=== PATIENT | female | born 1960 | race Caucasian/White ===

== ENCOUNTER 2017-09-05 06:38 | Inpatient (IN) | payer BC ==
[~2017-09-05 06:38] MED LIST: Buffered Lidocaine 0.9% SYRIN* 5 ML/SYR SYRINGE INTRADERM ONE
[2017-09-05] MEDS ORDERED: ceFAZolin 1 GM in Dextrose (*) 2 GM/100 ML BAG IVPB ONE (07:01)
[2017-09-05] MEDS ORDERED: Midazolam* 1 MG/ML 2 ML VIAL (2 MG) ONE (07:30)
[2017-09-05] MEDS ORDERED: fentaNYL* 50 MCG/ML 2 ML VIAL (100 MCG VIAL) ONE ×3 (07:30→12:24)
[2017-09-05] MEDS ORDERED: Cisatracurium* 2 MG/ML MDV 5 ML ONE ×2 (07:54→09:27)
[2017-09-05] MEDS ORDERED: Ondansetron INJ* 2 MG/ML VIAL ONE (08:11)
[2017-09-05] MEDS ORDERED: Famotidine IV* 10 MG/ML 2 ML (20 mg) ONE (08:11)
[2017-09-05] MEDS ORDERED: Propofol* 10 MG/ML 20 ML BTL IV PUSH ONE (08:11)
[2017-09-05] MEDS ORDERED: Dexamethasone IV* 4 MG/ML 1 ML (4 MG) ONE (08:11)
[2017-09-05] MEDS ORDERED: EPHEDrine (Pressors)* 50 MG/ML VIAL ONE (08:11)
[2017-09-05] MEDS ORDERED: Lidocaine 1% MPF wEPI 200,000* 30 ML SDV ONE (08:20)
[2017-09-05] MEDS ORDERED: Bupivacaine 0.25% SDV* 30 ML ONE (08:20)
[2017-09-05] MEDS ORDERED: Dexmedetomidine* 200 MCG/2 ML 2 ML VIAL ONE (08:35)
[2017-09-05] MEDS ORDERED: HYDROcodone/ACETAMIN 5-325 MG* 1 TAB PO PRN ×2 (09:00→12:37)
[2017-09-05] MEDS ORDERED: Naloxone* 0.4 MG/ML 1 ML VIAL IV PRN (09:00)
[2017-09-05] MEDS ORDERED: Ondansetron INJ* 2 MG/ML VIAL IV PRN ×2 (09:00→12:21)
[2017-09-05] MEDS ORDERED: HYDROmorphone INJ* 1 MG/ML CARPUJECT SYRINGE IV PRN ×2 (09:00→12:34)
[2017-09-05] MEDS ORDERED: Acetaminophen TAB* 325 MG PO PRN ×2 (09:00→12:21)
[2017-09-05] MEDS ORDERED: DiMENhydriNATE IV* 50 MG/ML VIAL IV PUSH PRN (09:00)
[2017-09-05] MEDS ORDERED: PROCHLORPERAZINE INJ 5 MG/ML 2 ML VIAL IV PRN (09:00)
[2017-09-05] MEDS ORDERED: Scopolamine 1.5 mg* PATCH TRANSDERM PRN (09:00)
[2017-09-05] MEDS ORDERED: Methylene Blue 0.5 %* 50 MG/10 ML AMP IV ONE (09:39)
[2017-09-05] MEDS ORDERED: Al Hydrox/Mg Hydrox/Simet LIQ* 30 ML UDC PO PRN (12:21)
[2017-09-05] MEDS ORDERED: Magnesium Hydroxide LIQ* 30 ML UDC PO PRN (12:21)
[2017-09-05] MEDS: fentaNYL* 50 MCG/ML 2 ML VIAL (100 MCG VIAL) IV PRN ×4 (12:24→12:51)
[2017-09-05] MEDS ORDERED: diPHENhydraMINE PO* 25 MG PO PRN (12:37)
[2017-09-05] MEDS ORDERED: diPHENhydraMINE IV* 50 MG/ML 1 ml VIAL (BENADRYL) IV PRN (12:37)
[2017-09-05] MEDS: NS 0.9% 1000 ML* 1,000 ML IV SCH (13:36)
[2017-09-05] MEDS: HYDROcodone/ACETAMIN 5-325 MG* 1 TAB PO PRN ×3 (16:12→22:19)
[2017-09-05] MEDS: [UNRECOGNIZED DRUG - OTHER] PO SCH (17:01)
[2017-09-05] MEDS: SULFASALAZINE PO SCH (20:14)
[2017-09-05] MEDS: [UNRECOGNIZED DRUG - OTHER] PO SCH (20:14)
[2017-09-05] MEDS: Docusate CAP* 100 MG PO SCH (20:14)
[2017-09-06] MEDS: NS 0.9% 1000 ML* 1,000 ML IV SCH (02:59)
[2017-09-06] MEDS: HYDROcodone/ACETAMIN 5-325 MG* 1 TAB PO PRN ×2 (06:30→09:56)
[2017-09-06] MEDS: SULFASALAZINE PO SCH (08:57)
[2017-09-06] MEDS: Docusate CAP* 100 MG PO SCH (08:57)
[2017-09-06] MEDS: [UNRECOGNIZED DRUG - OTHER] PO SCH (08:57)
[2017-09-06 09:10] VITALS: BP 114/61
[2017-09-06] MEDS: [UNRECOGNIZED DRUG - OTHER] PO SCH (10:02)
[2017-09-08] MEDS ORDERED: Scopolamine PATCH Remove* 1 NOTE MISC PATCH OFF ONE (09:01)
== END 2017-09-06 10:30 | disposition home or self-care (01) | DRG 361 ==
LOC: AA 06:38 → SSU 12:21
PROVIDERS: ADMIT Plastic Surgery; ATTEND Plastic Surgery
PROC: 0HB7XZZ Excision of Abdomen Skin, External Approach (ICD-10-PCS; principal; 2017-09-05 07:45)
DX: L57.4 Cutis laxa senilis (principal); M45.9 Ankylosing spondylitis of unspecified sites in spine; Z90.3 Acquired absence of stomach [part of]; Z79.899 Other long term (current) drug therapy; Z87.891 Personal history of nicotine dependence
CPT/HCPCS: 94760; A9270-GY; J0690; J1100; J2001; J2250; J2405; J2704; J3010

== ENCOUNTER 2018-10-26 09:06 | Emergency (ER) | payer BC ==
--- OUTSIDE RECORDS SUMMARY | 2018-10-26 09:20 | XMS REPORT | Continuity of Care Document ---
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 Active Onset: 03/10/2014 Morbid obesity Leonel Wilcox M.D. Active Family History Description No Information Available Social History Type Date Description Comments Sex Unknown ETOH Use Denies alcohol use Tobacco Use Start: Unknown End: Unknown Patient is a former smoker Recreational Drug Use Denies Drug Use Smoking Status Reviewed: 10/01/18 Patient is a former smoker Allergies, Adverse Reactions, Alerts Description No Known Drug Allergies Medications Medication Date Status Form Strength Qnty SIG Indications Ordering Provider Omeprazole 06/14/ Active Capsules 40mg 60caps 1 tablet Jose Alberto 2017 by mateo Kelley, twice a DO day before meals Indomethacin / Active Capsules 50mg Endo, 0000 MD William Chlorthalidone / Active Tablets 25mg Prosper 0000 DO Jorge Acarbose / Active Tablets 25mg 1 Tablet Unknown 0000 With Meals Humira Pen / Active PNKT 40mg/0.4ML Wheat-T 0000 Jesse colmenares MD Peg 04/01/ Hx Solution 240gm 4000ml use as Leonel Soria 3350/Electrolyte 2014 - Rec directed/ salina Wilcox generic Isamar 2017 colyte Miralax 03/10/ Hx Powder 3350NF As 278.01 Leonel ShirleyLizz 2013 - louie Wilcox 03/13/ Isamar 2013 Atorvastatin / Hx Tablets 10mg Cheng, Calcium 0000 - Jorge, 2017 Sulfazine Ec / Hx Tablets DR 500mg Endo, 0000 - William, 2017 Metformin HCL / Hx Tablets 1000mg Cheng, 0000 - Jorge, 2017 Glyburide / Hx Tablets 5mg Cheng, 0000 - Jorge, 2017 Immunizations Description No Information Available Vital Signs Date Vital Result Comment 10/01/2018 8:41am Height 61 inches 5'1" Weight 178.00 lb BP Systolic 161 mmHg BP Diastolic 93 mmHg Heart Rate 77 /min BMI (Body Mass Index) 33.6 kg/m2 06/11/2018 8:15am Height 61 inches 5'1" Weight 175.00 lb BP Systolic 165 mmHg BP Diastolic 104 mmHg Heart Rate 91 /min BMI (Body Mass Index) 33.1 kg/m2 03/10/2014 10:33am Height 61 inches 5'1" Weight 232.00 lb BP Systolic 140 mmHg BP Diastolic 90 mmHg Heart Rate 72 /min BMI (Body Mass Index) 43.8 kg/m2 Results Test Date Facility Test Result H/L Range Note Laboratory test 06/14/2018 [facility] SEE RESULT 1 finding BELOW Laboratory test 06/14/2018 [facility] Surgical Interface SEE RESULT 2 finding Order BELOW Laboratory test 06/11/2018 [facility] Free T4 (Free 0.81 ng/dL N 0.61-1.12 3 finding Thyroxine) Celiac 2! 06/11/2018 [facility] Immunoglobulin A 80 mg/dL 61 - 356 4 (Iga) Tissue Transglutamianse Iga AB <1.2 U/mL 5 CBC W/Auto 06/11/2018 [facility] 6.0 3/UL 4.8- 10.8 Differential(!) [address] [facility] [place] [address] Count Ser [phone] Auto CNT RBC Red Blood Count 4.43 X106/UL 4.20-6.20 Hemoglobin Blood 13.1 g/dL 12.0-18.0 Hematocrit 41.6 % 35-52 MCV (Corpuscular Volume) 93.9 FL 79-97 MCH (Corpuscular Hemoglobin) 29.5 pg 27-31 MCHC (Corpuscular Hemog Conc) 31.5 g/dL Low 32.0-36.0 RDW 14.2 % 10.5-15.0 Platelet Count Blood Auto CNT 167 X103/UL 150-450 MPV 9.7 FL 7.4-10.4 Lymph% 25.4 % 20.0-45.0 Sussex% 4.2 % 1.0-9.0 Neutrophil % 70.4 % 38.0-83.0 Absolute Lymphocytes 1.5 X103/UL 1.0-4.8 Absolute Monocytes 0.3 X103/UL 0.0-0.8 Absolute Neutrophils 4.2 X103/UL 1.5-7.7 CMP(!) 06/11/2018 [facility] Sodium(!) 140 mEq/L 134- 149 [address] [email or web address] [address] [phone] Potassium(!) 4.0 mEq/L 3.6-5.5 Chloride Serum/Plasma(!) 102 mEq/L 94-112 Carbon Dioxide Ser/Plasm(!) 29 mEq/L 21-33 BUN - Urea Nitrogen(!) 16 mg/dL 6-24 Calcium Ser/Plasma Mass/Vol(!) 9.8 mg/dL 8.6-10.2 Creatinine Serum Mass/Vol(!) 0.6 mg/dL 0.5-1.4 Glucose Serum(!) 124 mg/dL High 70-105 BUN/Creatinine Ratio(!) 26.7 RATIO 8.0-36 Albumin Serum/Plasma(!) 4.6 g/dL 3.5-5.2 Alkaline Phosphatase(!) 71 U/L 39-117 Bilirubin Total Mass/Vol 0.5 mg/dL 0.2-1.3 Ast - Sgot 20 U/L 5-34 Alt - SGPT 22 U/L 10-40 Protein Total 6.6 g/dL 6.2-8.1 Laboratory test 06/11/2018 [facility] TSH Thyroid Stim 2.71 0.38-4.31 finding [address] [facility](!) [place] [address] [phone] Surgical 04/04/2014 [facility] Pathology DATE: SEE NOTE> Clotest 04/04/2014 [facility] Clotest (SEE NOTE) Xray 01/29/2014 [facility] [place] US Abdomen <pending Complete > Iron,Tibc,Fol,B 01/23/2014 [facility] Z#Other <pending 12,Gilson Observations > 1 SEE RESULT BELOW Name: DEBBIE LANDRY : [address]: Jose Alberto Kelley DO Acct: [id number] Unit: [id number] AGE: 57 Location: ENDO Re06/14/18 SEX: F Status: REG REF SPEC: [id number] JAYY: 06/14/[address] [facility] [address]: Jose Alberto Kelley DO REQ: [id number] RECD: 06/14/18 STATUS: KEYANNA ECKERT DR: Jorge Cheng DO _ SOURCE: GAS ANTRUM SPDESC: ORDERED: Clotest Procedure Result Reported Site Clotest Final 06/15/18- 0753 ML Clotest Negative * ML - Main Lab . END OF REPORT DEPARTMENT OF PATHOLOGY, [address] [place] [address] Ahsan Maradiaga M.D. Director [facility] # [id number] 2 SEE RESULT BELOW Name: DEBBIE LANDRY : [address]: Jose Alberto Kelley DO Acct: [id number] Unit: [id number] AGE: 57 Location: ENDO Re06/14/18 SEX: F Status: DEP REF SPEC: [id number] JAYY: 06/14/[address] [facility] [address]: Jose Alberto Kelley DO REQ: [id number] RECD: 06/14/18 STATUS: RIKI ECKERT DR: Jogre Cheng DO _ ORDERED: LEVEL 4/3 FINAL DIAGNOSIS 1. Duodenum, biopsy: -- Benign small intestinal mucosa with no significant pathologic abnormalities. -- No evidence of villous blunting or increased intraepithelial lymphocytes. 2. Stomach, antrum, biopsy: -- Antral-type gastric mucosa with mild chronic gastritis and reactive chemical gastropathy. -- No evidence of Helicobacter organisms. 3. Esophagus, distal, biopsy: -- Benign squamous mucosa with mild erosive changes. -- No columnar component present for evaluation. POST-OPERATIVE DIAGNOSIS EGD: esophagus - moderate lateral presbyesophagus LA - B esophagitis, biopsy ; gastric - sleeve antral erosions biopsy and KASEY test; duodenum - normal, biopsy GROSS DESCRIPTION 1. The specimen is received in formalin labeled, Biopsies Duodenum, and consists of a 0.5 by up to 0.3 x 0.2 cm cisneros irregular soft tissue fragment which is submitted entirely in one cassette. 2. The specimen is received in formalin labeled, Biopsies Antral Gastritis , and consists of two cisneros irregular soft tissue fragments averaging 0.3 x 0.2 x 0.1 cm which are submitted entirely in one cassette. 3. The specimen is received in formalin labeled, Biopsies Distal Esophagus , and consists of a 0.3 x 0.3 x 0.2 cm cisneros-white irregular soft tissue fragment which is submitted entirely in one cassette. CONTINUED ON NEXT PAGE DEPARTMENT OF PATHOLOGY, [address] [place] [address] Ahsan Maradiaga M.D. Director [facility] # [id number] RUN DATE: 06/15/18 [facility] LAB LIVE PAGE 2 Patient: DEBBIE LANDRY [id number] (Continued) GROSS DESCRIPTION (Continued) Signed by and Reported on: Lorelei Barnard MD 06/15/18 1202 END OF REPORT DEPARTMENT OF PATHOLOGY, [address] [place] [address] Ahsan Maradiaga M.D. Director [facility] # [id number] 3 [id number] Test Performed by: [facility] - [address] [address] 5 REFERENCE VALUE <4.0 (Negative) Test Performed by: [address] [address] Procedures Date Code Description Status 06/14/2018 65308 Moderate Sedation Services; Same Phys Each Additional 15 Completed Mins 06/14/2018 50782 Moderate Sedation Services; Same Phys Intl 15 Mins; PT >=5 Completed Years 06/14/2018 51874 EGD+Biopsy Single Or Multiple Completed 04/04/2014 28083 Colonscopy+Biopsy Completed 04/04/2014 27376 EGD+Biopsy Single Or Multiple Completed Encounters Type Date Location Provider Dx Diagnosis Office Visit 06/11/2018 [facility] Jose Alberto Kelley, K21.9 Gastro- esophageal 8:00a [facility] reflux disease without esophagitis R11.2 Nausea with vomiting, unspecified 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 Morbid V76.51 Special Screening For Malignant Neoplasms Colon Plan of Treatment No Information Available
[2018-10-26 09:31] VITALS: BP 180/85
--- NOTE | 2018-10-26 10:11 | ED ---
Lower Extremity - HPI Summary HPI Summary: 58 yr old female with the complaint of right hip, right knee pain. Onset over the past couple of weeks. The patient has a history of , and has arthritis. She reached for something and the pain worsened. She has no other complaints. - History of Current Complaint Chief Complaint: UCLowerExtremity Stated Complaint: RIGHT HIP/KNEE PAIN Time Seen by Provider: 10/26/18 09:26 Hx Last Menstrual Period: UTERINE OBLATION Pain Intensity: 8 - Allergies/Home Medications Allergies/Adverse Reactions: Allergies Allergy/AdvReac Type Severity Reaction Status Date / Time No Known Allergies Allergy Verified 10/26/18 09:21 Home Medications: Home Medications Adalimumab (NF) [Humira (NF) Pen Injector Kit] 40 mg SUBCUT SEE INSTRUCTIONS [History Confirmed 10/26/18] Lidocaine PATCH 5%* [Lidoderm 5% Patch*] 1 patch TRANSDERM DAILY 10/26/18 [ History Confirmed 10/26/18] PMH/Surg Hx/FS Hx/Imm Hx Endocrine/Hematology History: Reports: Hx Diabetes Cardiovascular History: Reports: Hx Hypertension, Other Cardiovascular Problems/ Disorders - hyperlipidemia - reports resolved since gastric sleeve Respiratory History: Reports: Hx Asthma - HX OF NO INHALERS Musculoskeletal History: Reports: Hx Arthritis - ANKLOSING SPONDYLITIS, Hx Tendonitis Sensory History: Reports: Hx Contacts or Glasses - CONTACTS, WILL WEAR GLASSES DAY OF SURGERY Denies: Hx Hearing Aid Opthamlomology History: Reports: Hx Contacts or Glasses - CONTACTS, WILL WEAR GLASSES DAY OF SURGERY - Surgical History Surgery Procedure, Year, and Place: UTERINE OBLATION. TUBALIGATION. CARPAL TUNNEL B/L,2000 jaw debridement. bariatric surgery Hx Anesthesia Reactions: No Infectious Disease History: No Infectious Disease History: Denies: Traveled Outside the [place] in Last 30 Days - Family History Known Family History: Positive: None - Social History Occupation: Employed Full-time Alcohol Use: None Substance Use Type: Reports: None Smoking Status (MU): Former Smoker Amount Used/How Often: 1/2 PPD Length of Time of Smoking/Using Tobacco: 20+ Have You Smoked in the Last Year: No Review of Systems Constitutional: Negative Positive: Other - low back, right hip, and right knee pain All Other Systems Reviewed And Are Negative: Yes Physical Exam Triage Information Reviewed: Yes Vital Signs On Initial Exam: Initial Vitals Temp Pulse Resp BP Pulse Ox 98.1 F 72 18 180/85 100 10/26/18 09:24 10/26/18 09:24 10/26/18 09:24 10/26/18 09:24 10/26/18 09:24 Vital Signs Reviewed: Yes Appearance: Positive: Well-Appearing, No Pain Distress Skin: Positive: Warm, Skin Color Reflects Adequate Perfusion Head/Face: Positive: Normal Head/Face Inspection Eyes: Positive: EOMI, RICK ENT: Positive: Normal ENT inspection Neck: Positive: Nontender Respiratory/Lung Sounds: Positive: Clear to Auscultation, Breath Sounds Present Cardiovascular: Positive: RRR. Negative: Murmur Abdomen Description: Negative: Distended Musculoskeletal: Positive: Other - tenderness over the right hip, and knee areas without swelling without redness. No effusion. Neurological: Positive: Sensory/Motor Intact, Alert, Oriented to Person Place, Time, CN Intact II-III Psychiatric: Positive: Normal - Teodoro Coma Scale Best Eye Response: 4 - Spontaneous Best Motor Response: 6 - Obeys Commands Best Verbal Response: 5 - Oriented Coma Scale Total: 15 Diagnostics - Vital Signs Vital Signs Temp Pulse Resp BP Pulse Ox 10/26/18 09:24 98.1 F 72 18 180/85 100 - Laboratory Lab Statement: Any lab studies that have been ordered have been reviewed, and results considered in the medical decision making process. Lower Extremity Course/Dx - Course Course Of Treatment: 58 yr old with low back pain, right hip and knee pain. spondylosis on xray spine. 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 - Diagnoses Provider Diagnoses: Sciatica, Hypertension, Ankylosing spondylitis lumbar region Discharge - Sign-Out/Discharge Documenting (check all that apply): Patient Departure All imaging exams completed and their final reports reviewed: Yes - Discharge Plan Condition: Good Disposition: HOME-RECOMMEND TO ED Patient Education Materials: Back Pain (ED), Hip Pain (ED), Hypertension (ED) Referrals: Jorge Cheng DO [Primary Care Provider] - 2 Days - Billing Disposition and Condition Condition: GOOD Disposition: Home-Recommend to ED
[2018-10-26] MEDS ORDERED: Ibuprofen TAB* 600 MG PO ONE (10:36)
[2018-10-26] MEDS ORDERED: Acetaminophen TAB* 325 MG PO ONE (10:36)
== END 2018-10-26 11:42 | disposition home or self-care (01) ==
LOC: UCCORT 09:06
DX: M54.31 Sciatica, right side (principal); I10 Essential (primary) hypertension; M19.90 Unspecified osteoarthritis, unspecified site; E11.9 Type 2 diabetes mellitus without complications; Z87.891 Personal history of nicotine dependence
CPT/HCPCS: 72110; 99212; A9270-GY; G0463

== ENCOUNTER 2020-06-11 09:41 | Observation (INO) ==
[~2020-06-11 09:41] MED LIST changes: +Artificial Tear OPHTH.OINT 3.5 GM ONE; +Bacitracin INJECTION 50,000 UNITS ONE; -Buffered Lidocaine 0.9% SYRIN* 5 ML/SYR SYRINGE INTRADERM ONE; +Buffered Lidocaine 1% SYRIN 1 ml INTRADERM ONE; +Bupivacaine 0.25% SDV 30 ML ONE; +Dexamethasone IV 4 MG/ML VIAL 1 ml VIAL ONE; +Lactated Ringers 1000 ml BAG 1,000 ML IV SCH; +Lidocaine 1% w EPI 1:100,000 MDV 20 ML VIAL ONE; +Lidocaine 2% PF 5 ML VIAL ONE; +Midazolam 2 mg/2 ml VIAL 1 mg/ml 2 ml VIAL (2 mg) ONE; +Ondansetron 4 mg VIAL 2 MG/ML 2 ml VIAL ONE; +Phenylephrine IV 10 MG/ML 1 ml VIAL ONE; +Propofol 10 MG/ML 20 ML BTL ONE; +Rocuronium 50 mg VIAL 10 mg/ml 5 ml VIAL (50 mg) ONE; +fentaNYL 100 mcg/2 ml 50 MCG/ML VIAL ONE; +fentaNYL 250 mcg/5 ml 50 MCG/ML 5 ml VIAL (250 MCG) ONE
[2020-06-11] MEDS ORDERED: ceFAZolin 2 GM PREMIX 2 GM/50 ML BAG ONE (10:01)
[2020-06-11] MEDS ORDERED: fentaNYL 100 mcg/2 ml 50 MCG/ML VIAL IV PRN (10:44)
[2020-06-11] MEDS ORDERED: oxyCODONE/Acetamin 5/325 mg TAB PO PRN (10:44)
[2020-06-11] MEDS ORDERED: Naloxone 0.4 mg VIAL 0.4 mg/ml 1 ml VIAL IV PRN (10:44)
[2020-06-11] MEDS ORDERED: Rocuronium 50 mg VIAL 10 mg/ml 5 ml VIAL (50 mg) ONE (11:57)
[2020-06-11] MEDS ORDERED: EPHEDrine (Pressors) 50 MG/ML VIAL ONE (12:12)
[2020-06-11] MEDS ORDERED: Acetaminophen IV 1 GM/100ML 100 ML ONE (13:07)
[2020-06-11] MEDS ORDERED: Ondansetron 4 mg VIAL 2 MG/ML 2 ml VIAL IV PRN (13:34)
[2020-06-11] MEDS ORDERED: HYDROcodone/ACETAMIN 5/325 mg TAB PO PRN (13:34)
[2020-06-11] MEDS ORDERED: Magnesium Hydroxide LIQ 30 ML UDC PO PRN (13:34)
[2020-06-11] MEDS: HYDROcodone/ACETAMIN 5/325 mg TAB PO PRN ×2 (14:43→19:03)
[2020-06-12] MEDS: oxyCODONE/Acetamin 5/325 mg TAB PO PRN ×3 (04:07→11:59)
[2020-06-12 11:10] VITALS: BP 107/75
== END 2020-06-12 12:55 | disposition home or self-care (01) ==
LOC: OR 09:41 → SSU 13:34 → INTOOBSV 13:34
PROVIDERS: ADMIT Neurological Surgery; ATTEND Neurological Surgery

== ENCOUNTER 2021-02-03 09:07 | Observation (INO) ==
[~2021-02-03 09:07] MED LIST changes: -Artificial Tear OPHTH.OINT 3.5 GM ONE; -Bacitracin INJECTION 50,000 UNITS ONE; -Bupivacaine 0.25% SDV 30 ML ONE; -Dexamethasone IV 4 MG/ML VIAL 1 ml VIAL ONE; +Famotidine IV 10 MG/ML 2 ml VIAL (20 mg) IV ONE; +Famotidine IV 10 MG/ML 2 ml VIAL (20 mg) ONE; -Lidocaine 1% w EPI 1:100,000 MDV 20 ML VIAL ONE; -Lidocaine 2% PF 5 ML VIAL ONE; -Midazolam 2 mg/2 ml VIAL 1 mg/ml 2 ml VIAL (2 mg) ONE; -Ondansetron 4 mg VIAL 2 MG/ML 2 ml VIAL ONE; -Phenylephrine IV 10 MG/ML 1 ml VIAL ONE; -Propofol 10 MG/ML 20 ML BTL ONE; -Rocuronium 50 mg VIAL 10 mg/ml 5 ml VIAL (50 mg) ONE; +ceFOXitin 2 GM IVPREMIX 2 GM/50 ML BAG ONE; -fentaNYL 100 mcg/2 ml 50 MCG/ML VIAL ONE; -fentaNYL 250 mcg/5 ml 50 MCG/ML 5 ml VIAL (250 MCG) ONE
[2021-02-03] MEDS ORDERED: Midazolam 2 mg/2 ml VIAL 1 mg/ml 2 ml VIAL (2 mg) ONE (09:49)
[2021-02-03] MEDS ORDERED: fentaNYL 100 mcg/2 ml 50 MCG/ML VIAL ONE (09:51)
[2021-02-03] MEDS ORDERED: Propofol 10 MG/ML 20 ML BTL ONE (09:51)
[2021-02-03] MEDS ORDERED: Ondansetron 4 mg VIAL 2 MG/ML 2 ml VIAL ONE (09:51)
[2021-02-03] MEDS ORDERED: Dexamethasone IV 4 MG/ML VIAL 1 ml VIAL ONE (09:51)
[2021-02-03] MEDS ORDERED: Rocuronium 50 mg VIAL 10 mg/ml 5 ml VIAL (50 mg) ONE (09:51)
[2021-02-03] MEDS ORDERED: Lidocaine 2% PF 5 ML VIAL ONE (09:51)
[2021-02-03] MEDS ORDERED: Ondansetron 4 mg VIAL 2 MG/ML 2 ml VIAL IV PRN (12:20)
[2021-02-03] MEDS ORDERED: Naloxone 0.4 mg VIAL 0.4 mg/ml 1 ml VIAL IV PRN (12:20)
[2021-02-03 12:58] LABS: Calcium 9.5 mg/dL (8.6-10.3); EGFR African American 115.3 (>60); EGFR Non-African American 95.3 (>60); Magnesium 1.3 mg/dL (1.9-2.7); Potassium 3.1 mmol/L (3.5-5.0)
[2021-02-03] MEDS ORDERED: Phenylephrine 40 mcg/mL 10mL (400mcg) SYRINGE ONE (13:07)
[2021-02-03] MEDS ORDERED: EPHEDrine (Pressors) 50 MG/ML VIAL ONE (13:07)
[2021-02-03] MEDS ORDERED: Magnesium Sulfate IV 3 GM in NS 0.9% 100 ml BAG 100 ML IVPB ONE (13:52)
[2021-02-03] MEDS ORDERED: Potassium Chlor 20 meq TAB.ER PO ONE (13:52)
[2021-02-03] MEDS ORDERED: Magnesium Sulfate 2 GM IV (Premix) IVPB ONE (16:30)
[2021-02-03] MEDS ORDERED: Magnesium Sulfate 1 GM IV 1 GM/100 ML BAG IV ONE (17:30)
[2021-02-03] MEDS ORDERED: MULTIVIT WITH MIN FOLIC ACID PO SCH (18:00)
[2021-02-04 06:10] LABS: ABS Lymphocytes 2.9 10^3/ul (1.0-4.8); ABS Monocytes 0.5 10^3/ul (0-0.8); ABS Neutrophils 3.9 10^3/ul (1.5-7.7); Hematocrit 33 % (35-47); Hemoglobin 10.2 g/dL (12.0-16.0); Lymphocyte % 39.7 %; Mean Corpuscular HGB Conc 31 g/dL (31-36); Mean Corpuscular Hemoglobin 25 pg (27-31); Mean Corpuscular Volume 81 fL (80-97); Mean Platelet Volume 9.9 fL (7.4-10.4); Platelet Count 211 10^3/uL (150-450); Red Cell Distribution Width 16 % (10-15); White Blood Count 7.3 10^3/uL (3.5-10.8)
[2021-02-04 06:40] LABS: Calcium 9.5 mg/dL (8.6-10.3); EGFR African American 111.3 (>60); Potassium 3.5 mmol/L (3.5-5.0)
[2021-02-04 08:53] VITALS: BP 118/69
== END 2021-02-04 13:22 | disposition home or self-care (01) ==
LOC: MEDTELE 09:07 → OR 09:07
PROVIDERS: ADMIT Surgery; ATTEND Hospitalist